=== PATIENT | female | born 1980 | race Caucasian/White ===

== ENCOUNTER 2018-11-18 11:47 | Day surgery (SDC) | payer SELFPAY ==
[2018-11-18] VITALS (9 sets, daily range): BP systolic 99–116; BP diastolic 57–81; PULSE 69–99; RESP 14–16; TEMP 36.4–37.3; O2SAT 98–100; BMI 20.4
--- NOTE | 2018-11-18 12:00 | FAL_PTH ---
PATIENT: HILLARY PARIKH [place] [facility] [id number] AGE/SX: 38/F ROOM: RE11/18/[address]: Dr. Hayde Garcia MD : 1980 BED: DIS: 11/18/2018 SPEC #: [id number] RECD: 11/19/18 07:38 STATUS: ZAMZAM KARINE #: [id number] LINDEN: 11/18/18 12:[address]: Hayde Aguilera DEPT: SURGICAL PATHOLOGY RECD BY: Kyler Avendaño ENTERED: 11/19/18 08:59 SP TYPE: ECTOPIC OTHR DR: No Primary Care Phys Tissues: ECTOPIC PREG Procedures: Surgery Specimen Level IV HEADER OPERATION: Diagnostic laparoscopy, right salpingectomy, lysis of adhesions PRE-OP DIAGNOSIS: Ectopic , acute TISSUE SUBMITTED: Right fallopian tube MICROSCOPIC DIAGNOSIS Right fallopian tube, salpingectomy: Fallopian tube with decidua and immature chorionic villi (ectopic ). SJ:janee 11/20/18 MICROSCOPIC DESCRIPTION Slides are reviewed. GROSS DESCRIPTION Received in fixative is one container labeled with the patient's name and designated right fallopian tube. The specimen consists of a antunez fallopian tube measuring 6.5 cm in length and varying in diameter from 0.7 to 1.6 cm. The fimbriated end has a normal villous appearance. The soft tissue adjacent to the fimbriated end contains a smooth, glistening cyst containing clear fluid. The cyst measures 1.2 cm in greatest diameter. Serial sections of the fallopian tube does not reveal mass lesion. M[employer] Supervisor sections are submitted in two cassettes. / AM:janee 11/19/18 TC:5 CPT: 97478
--- NOTE | 2018-11-18 12:07 | HP.PCM_ITS ---
- Problem List (1) Ectopic Status: Acute Qualifiers: Location of ectopic : unspecified location Intrauterine status: without intrauterine Qualified Code(s): O00.90 - Unspecified ectopic without intrauterine History Date of Admission: 11/18/18 Final CARMEL: 07/20/19 Final CARMEL Source: US <20 weeks Gestational age: 5 Weeks and 1 Days History of this : This is a 38 year-old, G [13], P [7057], at 5 1/7 weeks gestational age by LMP 10/13/18 with c/o abdominal pain. Pain started and peaked yesterday. Pain worsens when lying down. Denies vaginal bleeding. Prior hx ectopic treated by laparoscopy in 2006 without salpingectomy. Medical History: Medical History (Last Updated 11/18/18 @ 12:08 by Hayde Olson MD) Patient denies medical problems Z78.9 Surgical History: Surgical History (Last Updated 11/18/18 @ 12:08 by Hayde Olson MD) H/O laparoscopy Z98.890 ectopic Allergies No Known Allergies Allergy (Verified 03/05/16 03:06) Home Medications: Home Medications Vit No.130/Iron/Folic [ Tablet] 1 tab PO DAILY 03/05/16 Smoking Status: Never smoker Alcohol: None History Labs: Office US 11/18/18 Posterior culdesac and R. adnexa with fluid and clot Uterus with empty misshapen gestational sac measuring 7weeks 4 days. L. ovary not seen. No extrauterine seen Laboratory Tests 11/18/18 11/18/18 11/18/18 Range/Units 12:10 12:10 12:10 WBC 10.1 (4.4-11.0) K/mm3 RBC 4.40 (4.2-5.4) M/mm3 Hgb 13.2 (12.0-15.0) g/dL Hct 38.1 (37-47) % MCV 86.6 (81-99) fL MCH 30.0 (27.0-32.0) pg MCHC 34.6 (32-36) g/dL RDW Std Deviation 38.3 (35.1-43.9) fl RDW Coeff of Tyrel 12.1 (11.6-14.6) % Plt Count 207 (150-450) K/mm3 MPV 9.1 (6.2-12.0) fl Sodium 137 (136-145) mmol/L Potassium 3.8 (3.5-5.1) mmol/L Chloride 106 (98-107) mmol/L Carbon Dioxide 24.0 (21.0-32.0) mmol/L Anion Gap 7 (5-15) BUN 9 (7-18) mg/dL Creatinine 0.85 (0.55-1.02) mg/dL Estim Creat Clear Calc 64.46 ml/min Est GFR (MDRD) Af Amer 96 (>60) mL/min Est GFR (MDRD) Non-Af 80 (>60) mL/min BUN/Creatinine Ratio 10.6 (10-20) RATIO Glucose 106 (74-106) mg/dL Calcium 9.3 (8.5-10.1) mg/dL Total Bilirubin 0.90 (0.20-1.00) mg/dL AST 15 (15-37) U/L ALT 32 (13-56) U/L Alkaline Phosphatase 65 (45-117) U/L Total Protein 8.1 (6.4-8.2) g/dL Albumin 4.4 (3.2-5.0) g/dL Globulin 3.7 (2.2-4.2) g/dL Albumin/Globulin Ratio 1.2 (0.9-2.4) RATIO Crossmatch See Detail Review of Systems Constitutional: Reports: Fatigue. Denies: Chills, Fever, Weakness Cardiovascular: Denies: Chest Pain, Palpitations, Syncope Respiratory: Denies: Cough, Shortness of Breath Gastrointestinal: Reports: Abdominal Pain. Denies: Nausea, Vomiting Physical Exam Vitals: AVSS General: Alert, Oriented x3, No apparent distress HEENT: Atraumatic, Normocephalic Cardiovascular: Regular rate, Regular Rhythm, Normal S1, Normal S2 Lungs: Clear to auscultation, Normal air movement Abdomen: Soft, Non-Distended, - - + lower abdominal tenderness without rebound or guarding Extremities:: No edema Neurological: Neuro grossly intact [employer] INSTALLER: Normal external genitalia Assessment/Plan All Active Problems (Last Updated 11/18/18 @ 12:08 by Hayde Olson MD) Ectopic (Acute) This is a 38 year-old, G [12], P [7], at 5 1/7 weeks gestational age with ruptured ectopic . -?heterotopic with anembryonic intrauterine gestation. -Plan for diagnostic laparoscopy -Salpingectomy and/or oophorectomy as indicated -Reviewed with patient treatment r/b/i. Do not recommend observation at this time. Consents signed and reviewed. -CBC, T&S, T&C, CMP pending -NPO -Transfusion acceptable.
[2018-11-18 12:26] LABS: Hematocrit 38.1 % (37-47); Hemoglobin 13.2 g/dL (12.0-15.0); Mean Corp Hgb Conc 34.6 g/dL (32-36); Mean Corpuscular Volume 86.6 fL (81-99); Mean Platelet Vol. 9.1 fl (6.2-12.0); Platelet Count 207 K/mm3 (150-450); RBC Distribution Width CV 12.1 % (11.6-14.6); RBC Distribution Width SD 38.3 fl (35.1-43.9); White Blood Count 10.1 K/mm3 (4.4-11.0)
[2018-11-18 12:45] LABS: ALB/GLOB Ratio 1.2 RATIO (0.9-2.4); AST(SGOT) 15 U/L (15-37); Alanine Aminotransfer ALT/SGPT 32 U/L (13-56); Albumin, Serum 4.4 g/dL (3.2-5.0); Alkaline Phosphatase 65 U/L (45-117); Anion Gap 7 (5-15); BUN 9 mg/dL (7-18); BUN/Creat Ratio 10.6 RATIO (10-20); Calcium,Total 9.3 mg/dL (8.5-10.1); Chloride 106 mmol/L (98-107); Creatinine, Serum 0.85 mg/dL (0.55-1.02); EST Glomerular Filtration Rate 80 mL/min (>60); Est Glom Filt Rate - Afr Amer 96 mL/min (>60); Estimated Creatinine Clearance 64.46 ml/min; Globulin 3.7 g/dL (2.2-4.2); Glucose 106 mg/dL (74-106); Potassium 3.8 mmol/L (3.5-5.1); Protein, Total 8.1 g/dL (6.4-8.2); Sodium Level 137 mmol/L (136-145)
[2018-11-18] MEDS: Cefazolin 2 GM in 0.9% Normal Saline 100 ML IV (12:50)
[2018-11-18 13:29] LABS: hCG Titer Quant., Serum 1606 mIU/mL (1-3)
[2018-11-18] MEDS: Bupivacaine Mpf 0.5% 30 ML VIAL (13:55)
--- NOTE | 2018-11-18 14:07 | PCM.OPRPT ---
Problem List (1) Ectopic Status: Acute Qualifiers: Location of ectopic : tubal Intrauterine status: without intrauterine Laterality: right Qualified Code(s): O00.101 - Right tubal without intrauterine Report of Operation Date of Procedure: 11/18/18 Pre-Operative Diagnosis: Right ectopic Post-Operative Diagnosis: Right tubal Surgery/Procedure Performed:: Diagnostic laparoscopy. Right salpingectomy. Adhesiolysis Type of Anesthesia:: General, Local Anesthesiologist: Chandra Burroughs Specimen's removed: right tube Estimated Blood Loss (mL): 500 Fluids Replaced: 900 ml Description of Procedure: The patient was taken to the operating room and signed and was performed. Placed in the dorsal supine position and induced under general anesthesia and intubated. She is then placed into dorsolithotomy and examination under anesthesia was performed. The arms were tucked at the sides. The perineum and abdomen were prepped and draped in sterile fashion. Timeout was performed. Patient was placed in the high lithotomy. Robles catheter was placed and a weighted speculum placed into the vagina. The cervix was grasped at the anterior cervical lip using a single-tooth tenaculum and a con cannula was placed and secured for uterine manipulation. Patient was then repositioned into the low lithotomy and attention turned to the abdomen. Incision was made at the inferior umbilicus a varies needle placed with no aspirate and successful hanging drop test. Abdominal entry pressure was 0 mmHg. The abdomen was insufflated to 15 mmHg. The Veress needle was removed and trocar placed under laparoscopic guidance confirming atraumatic entry into the abdominal cavity. On inspection there appeared to be blood and clot within the pelvis with a small intestinal adhesion to the anterior abdominal wall.. Half percent Marcaine was placed for a tap block in the right and left lower quadrants and incisions were made and 5 mm trochars placed at the sites. A suprapubic incision was made and a 10 mm port was placed. The small intestinal adhesion was sharply dissected from the anterior abdominal wall. The patient was placed into Trendelenburg and the pelvis was suctioned the pelvis was inspected and appeared there was a right tubal with clot. The ovaries bilaterally and left tube were normal in appearance. The uterus was also normal in appearance. The right tube was isolated and the mesosalpinx coagulated and transected using the Enseal device with salpingectomy performed. The tube was removed via the 10 mm port and sent to pathology. The patient was placed into reverse Trendelenburg and the pelvis suctioned of clot. The patient was then leveled the procedure was complete. The abdomen was desufflated and several large breaths were given. The trochars were removed. The the suprapubic incision was closed using 0 Vicryl. The skin at all sites was closed using 4-0 Monocryl. Steri-Strips and OpSite dressing were placed over the incisional sites. Additional Marcaine was administered locally for a total of 20 cc. Tension was then turned to the perineum and the Robles catheter was removed. The tenaculum and Erma cannula were removed. The patient was then repositioned into dorsal supine position, awakened, extubated and transferred to the recovery room without complication. Sponge and needle counts were correct x2. - Admit VTE Documentation VTE Present on Admission: No VTE Mechan Device Prophylaxis: SCD's VTE Pharm Prophylaxis ordered?: No
--- NOTE | 2018-11-18 15:48 | PCM.DC ---
- Discharge Diagnoses Current Active Problems: Current Active and Chronic Problems (Last Updated 11/18/18 @ 12:08 by Hayde Olson MD) Ectopic (Acute) You will use the following diet at home:: No restrictions Your food should be the consistency of: Regular Discharge Activity: Return to Normal Activity, May Shower May resume sexual activity in: 4 weeks Lifting Restrictions: 10-20 lb Call your doctor if your incision/area has: Continuous Slow Oozing, Sudden Increased Bleeding, Increased Pain/ Swelling, Increased Redness Call your doctor if you observe: Fever of 101 or Higher, Inability to urinate, Inability to have a bowel movement, Using more than one pad per hour, Shortness of breath, Chest pain, Calf discomfort, Uncontrolled pain Suture Line Care: Avoid Pulling/Pushing Remove Dressing in (days):: 1 Cleanse incision/area with: Soap & Water Instructions: After Laparoscopic Treatment of Ectopic Allergies/Adverse Reactions: Allergies No Known Allergies Allergy (Verified 03/05/16 03:06) Medications to take at Discharge Vit No.130/Iron/Folic [ Tablet] 1 tab PO DAILY 03/05/16 Docusate Sodium [Colace] 100 mg PO BID PRN PRN #60 cap 11/18/18 Ibuprofen 600 mg PO TID PRN #30 tab 11/18/18 Oxycodone [Oxyir] 1 - 2 tab PO Q6H PRN PRN 7 Days #12 tablet 11/18/18 The following prescriptions were given: Docusate Sodium [Colace] 100 mg PO BID PRN PRN #60 cap PRN Reason: Constipation Transmission Status: Pending to [facility] Ibuprofen 600 mg PO TID PRN #30 tab PRN Reason: Pain Transmission Status: Pending to [facility] Oxycodone [Oxyir] 1 - 2 tab PO Q6H PRN PRN 7 Days #12 tablet PRN Reason: Pain Transmission Status: Sent to [facility] Primary Care Physician: Care Physician,No Primary [Primary Care Provider] - Test Results: Test results from this visit will be discussed in further detail at your follow-up appointment, if applicable. Please Follow Up With: Hayde Olson MD - postop visit When: 2 weeks
== END 2018-11-18 16:34 | disposition home or self-care (01) ==
LOC: SDC 11:50 → AC 11:53
PROVIDERS: Referring Provider Obstetrics & Gynecology; Visit Provider Obstetrics & Gynecology
PROC: 10T24ZZ Resection of Products of Conception, Ectopic, Percutaneous Endoscopic Approach (ICD-10-PCS; CPT 59150; principal; 2018-11-18 11:45)
DX: O00.101 Right tubal pregnancy without intrauterine pregnancy (principal); Z3A.01 Less than 8 weeks gestation of pregnancy
CPT/HCPCS: 59151; 36415; 80053; 84702; 85027; 86850; 86870; 86900; 86902; 86920; 86922; 88305; J7120; C1760; J2405